=== PATIENT | female | born 2000 | race Caucasian/White ===

== ENCOUNTER → 2022-07-20 08:46 | Outpatient (CLI) | payer BC, SELFPAY ==
--- NOTE | ~2022-07-20 | US_ITS ---
EXAMINATION: US soft tissue head and neck DATE: 07/20/2022 09:03 INDICATION: Enlarged lymph nodes. Right neck lump TECHNIQUE: Multiple grayscale and Doppler ultrasound images of the right neck were obtained. COMPARISON: None FINDINGS: There is nonenlarged lymph node at the region of concern at the right neck which measures 3.5 x 2.9 x 1.4 cm. There are several smaller normal sized right cervical lymph nodes measuring up to 1.4 cm in maximal length and all measuring less than 6 mm in short axis diameter. IMPRESSION: 1. Enlarged 3.5 x 2.9 x 1.4 cm right cervical lymph node which differential would include reactive ly mph node, lymphoma or metastatic disease. Consider ultrasound-guided core needle biopsy. Reviewed, dictated and finalized at location A. IMPRESSION: 1. Enlarged 3.5 x 2.9 x 1.4 cm right cervical lymph node which differential wou ld include reactive lymph node, lymphoma or metastatic disease. Consider ultras ound-guided core needle biopsy.
== END ==
PROVIDERS: PCP Pediatrics; Visit Provider Pediatrics
DX: R59.0 Localized enlarged lymph nodes (principal)
CPT/HCPCS: 76536

== ENCOUNTER 2024-02-17 08:33 | Emergency (ER) | payer BC, SELFPAY ==
[2024-02-17 08:59] VITALS: BP 116/75; PULSE 75; RESP 16; TEMP 36.5; O2SAT 100
--- NOTE | 2024-02-17 09:26 | ED.GENADULT ---
HPI - General Adult General Chief complaint: Upper Respiratory Infection Stated complaint: Sore Throat Source: patient Mode of arrival: ambulatory Limitations: no limitations History of Present Illness HPI narrative: Pt presents for evaluation of sore throat for the past five days. She has also experienced a cough and fatigue. She denies any nausea, vomiting or diarrhea. She states her brother came in here last night and tested positive for mono. She does not smoke. She is not taking any medication to assist with her symptoms. Related Data Home Medications ?Medication ?Instructions ?Recorded ?Confirmed ?Last Taken ?Type sertraline 50 mg tablet mg 02/17/24 Unknown History Allergies Allergy/AdvReac Type Severity Reaction Status Date / Time No Known Allergies Allergy Verified 02/17/24 09:30 Review of Systems Review of Systems: CONSTITUTIONAL: Reports fatigue. Denies fever, chills, or sweats. EYES: Denies visual changes, redness, or discharge. ENT: Reports sore throat. Denies rhinorrhea, congestion, or otalgia. CARDIOVASCULAR: Denies chest pain, palpitations, or edema. RESPIRATORY: Reports cough. Denies dyspnea. GASTROINTESTINAL: Denies abdominal pain, nausea, vomiting, or diarrhea. GENITOURINARY: Denies dysuria or hematuria. SKIN: Denies rash or itching. MUSCULOSKELETAL: Denies back pain, joint pain, or myalgia. NEUROLOGIC: Denies headache, numbness, dizziness, or weakness. PSYCHIATRIC: Denies anxiety or depression. 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 HEAD: Normocephalic, atraumatic. EYES: PERRLA and EOMI. ENT: Nares clear, no rhinorrhea or epistaxis. Mucous membranes moist. Bilateral tonsillar enlargement without erythema. No exudate. Uvula is midline. Bilateral TMs pearly tapia nonbulging NECK: Supple. No adenopathy or masses. No carotid bruits or JVD CHEST: Clear to auscultation. No respiratory distress. No wheezes rales or rhonchi HEART: Regular rate and rhythm. No murmur heard. Normal peripheral pulses. ABDOMEN: Soft, nontender, nondistended, normal active bowel sounds. EXTREMITIES: Normal range of motion. No edema. SKIN: Warm, dry, no rash. NEURO: No focal deficits. Alert and oriented x3. PSYCH: Normal mood and affect. Course Course Emergency Course: This is a 23-year-old female who presented for evaluation of sore throat. Strep and mono negative. Exam is consistent with viral illness. Increase hydration. [id number] agents for symptom management. Follow up with primary provider. Go to the ER for worsening symptoms. Patient in agreement with plan of care. Level of Care: Express Care Visit Vital Signs Vital signs: Vital Signs Temperature 36.5 C 02/17/24 08:59 Pulse Rate 75 02/17/24 08:59 Respiratory Rate 16 02/17/24 08:59 Blood Pressure 116/75 02/17/24 08:59 Pulse Oximetry 100 02/17/24 08:59 Temperature 36.5 C 02/17/24 08:59 Pulse Rate 75 02/17/24 08:59 Respiratory Rate 16 02/17/24 08:59 Blood Pressure 116/75 02/17/24 08:59 Pulse Oximetry 100 02/17/24 08:59 Medical Decision Making Vital Signs Vital Signs: Vital Signs Temperature 36.5 C 02/17/24 08:59 Pulse Rate 75 02/17/24 08:59 Respiratory Rate 16 02/17/24 08:59 Blood Pressure 116/75 02/17/24 08:59 Pulse Oximetry 100 02/17/24 08:59 Temperature 36.5 C 02/17/24 08:59 Pulse Rate 75 02/17/24 08:59 Respiratory Rate 16 02/17/24 08:59 Blood Pressure 116/75 02/17/24 08:59 Pulse Oximetry 100 02/17/24 08:59 Lab Data Labs: Lab Results 02/17/24 02/17/24 Range/Units 09:32 09:38 POC Monoscreen Negative (Negative) POC Grp A Strep Screen Negative (Negative) Discharge Plan Discharge Clinical Impression: Viral infection Patient Disposition: Home, Self-Care Condition: Stable Instructions: Antibiotic Form, Viral Syndrome (ED) Patient Language: Albanian Prescriptions: No Action sertraline 50 mg tablet Follow-up/Referrals: Alda,VASQUEZ Patel [Primary Care Provider] - Time of Disposition: 10:03
[2024-02-17 09:33] LABS: EDSTREPNEGPOS1 Negative (Negative)
[2024-02-17 09:39] LABS: EDMONONEGPOS Negative (Negative)
== END 2024-02-17 10:17 | disposition home or self-care (01) ==
PROVIDERS: Emergency Provider Nurse Practitioner; PCP Physician Assistant
DX: B34.9 Viral infection, unspecified (principal)
CPT/HCPCS: 36416; 86308; 87081; 87880; 99213; G0463

== ENCOUNTER 2024-09-23 12:55 | Outpatient (CLI) | payer BC, SELFPAY ==
--- NOTE | ~2024-09-23 | XR_ITS ---
EXAMINATION: XR chest 2V Exam Date/Time: 09/23/2024 12:58 CDT HISTORY: persistent cough x 3 wks s/p swimming, non smoker Comparison: 12/20/2016. RESULT: Lines, tubes, and devices: None. Lungs and pleura: Clear. Cardiomediastinal silhouette: Stable. Other: No acute osseous or upper abdominal finding. IMPRESSION: No acute cardiopulmonary process. Reviewed, dictated and finalized at location K.
== END 2024-09-23 12:56 | disposition home or self-care (01) ==
PROVIDERS: PCP Physician Assistant; Visit Provider Physician Assistant
DX: R05.3 Chronic cough (principal)
CPT/HCPCS: 71046